=== PATIENT | female | born 1975 | race Caucasian/White ===

== ENCOUNTER 2022-02-21 09:56 | Emergency (ER) | payer OTHER | END 2022-02-21 11:05 | disposition home or self-care (01) | LOC: JD.ED 09:56 | DX: S63.501A Unspecified sprain of right wrist, initial encounter (principal); W18.30XA Fall on same level, unspecified, initial encounter | CPT/HCPCS: 73110-26-RT; 73110-RT; 99283-25 ==

== ENCOUNTER 2023-01-11 09:39 | Emergency (ER) | payer MEDICAID, OTHER ==
[2023-01-11] MEDS ORDERED: Potassium Chloride 20 MEQ Tab.ER PO ONE (11:50)
== END 2023-01-11 12:22 | disposition home or self-care (01) ==
LOC: JD.ED 09:39
DX: E87.6 Hypokalemia (principal); Z98.890 Other specified postprocedural states
CPT/HCPCS: 36415; 80053; 83735; 85025; 99284; A9270